=== PATIENT | male | born 1950 | race Caucasian/White ===

== ENCOUNTER → 2019-01-15 15:46 | Outpatient (CLI) | payer MEDICARE, MEDICAID, SELFPAY ==
--- NOTE | 2019-01-15 | DI.MRI.S_ITS ---
PROCEDURE: MR THORACIC SPINE WO/W CON INDICATIONS: PAIN IN THORACIC AND LUMBAR SPINE TECHNIQUE: Noncontrast sagittal T1 spin echo and T2 fast spin echo, sagittal STIR, axial T1 and T2 fast spin echo through the thoracic spine. After the administration of contrast, axial and sagittal T1 spin echo with fat saturation through the thoracic spine. COMPARISON: [facility], MR, MR LUMBAR SPINE WO CON, 01/15/2019, 15:58. FINDINGS: Image quality: Excellent. Alignment and curvature: There is normal bony alignment. Marrow: There is a mass seen centered within the posterior elements at the T7 level, with prominent involvement of the spinous process and the right-sided posterior elements. The right pedicle is also involved. There is severe central canal narrowing seen, with flattening of the ventral spinal cord, as on series 7 image 25. The posterior aspect of the T7 vertebral body is also involved. There is surrounding enhancement of the adjacent soft tissues, including within the epidural region centered at T7 on the left. There is moderate to severe right-sided neural foraminal narrowing seen at T6-T7 and T7-T8. There is also mild involvement of the T3 spinous process. Similar milder involvement can be seen involving the spinous process on the left posterior elements at T10. There is also abnormally decreased T1 weighted signal and abnormally increased T2-weighted/STIR signal and abnormal enhancement seen within the posterior T5 vertebral body and the anterior T11 vertebral body. Each of these areas demonstrates abnormal enhancement. Benign scattered foci are also seen, which are hyperintense on T1-weighted and T2-weighted imaging, which are most consistent with benign vertebral body hemangiomas. Spinal cord: Visualized spinal cord is of normal signal, without abnormal enhancement. Paraspinous soft tissues: No paravertebral masses or abnormal enhancement. Miscellaneous: There is severe central canal narrowing centered at the T7 level. IMPRESSION: There is a soft tissue mass seen involving the posterior elements of the T7 vertebral body, with associated moderate to severe central canal narrowing and spinal cord narrowing. Milder involvement can be seen elsewhere within the thoracic spine. This represents metastatic disease until proven otherwise. An urgent spine surgery consultation is recommended. Note: Findings and recommendations discussed by telephone with Twyla Villalta at 1709 hrs. [place] time on January 15, 2019. Dictated by: Zachery Díaz M.D. on 01/15/2019 at 16:01 Approved by: Zachery Díaz M.D. on 01/15/2019 at 16:12
--- NOTE | 2019-01-15 | DI.MRI.S_ITS ---
PROCEDURE: MR LUMBAR SPINE WO CON INDICATIONS: PAIN IN THORACIC AND LUMBAR SPINE TECHNIQUE: Noncontrast sagittal T1 spin echo and T2 fast echo, sagittal STIR, axial T1 and T2 fast spin echo through the lumbar spine. In cases with scoliosis, additional coronal T2 fast spin echo may be performed. COMPARISON: None. FINDINGS: Image quality: Excellent. Alignment and Curvature: There is mild straightening of normal lumbar curvature. There is trace retrolisthesis of L3 on L4, L4 on L5. Bone Marrow: Marrow is of normal overall signal. Increased T1 and T2 signal foci are present at T12 and L1 suggestive of hemangiomas. No acute vertebral body compression fractures. Spinal Cord: Conus medullaris terminates at the L1-L2 level. Visualized cord demonstrates normal signal and size. Paraspinous Soft Tissues: No paravertebral masses. Discs: Severe desiccation is present L3-4 through L5-S1, moderate throughout the remainder of the lumbar spine. L1-L2: Mild disc bulge with minimal appearance of canal narrowing. Minimal right foraminal narrowing with facet and ligamentum flavum hypertrophy. L2-L3: Mild disc bulge with moderate to severe spinal stenosis. Moderate bilateral foraminal narrowing with facet and ligamentum flavum hypertrophy. L3-L4: Mild disc bulge with severe spinal stenosis and canal compression. Severe bilateral foraminal narrowing with nerve root compression most notable on the right and to a lesser degree the left. Facet and ligamentum flavum hypertrophy are present. L4-L5: Mild disc bulge with severe spinal stenosis. Severe bilateral foraminal narrowing, left greater than right slight effacement of the right nerve root. Facet and ligamentum flavum hypertrophy are present. L5-S1: Mild disc bulge without spinal stenosis. Moderate to severe bilateral foraminal narrowing with facet and ligamentum flavum hypertrophy. IMPRESSION: 1. Multilevel disc bulges. 2. Multilevel spinal stenosis severe at L3-4 and L4-5 secondary to disc bulge with contributing affective facet/ligament of the arthropathy and retrolisthesis. 3. Multiple foraminal narrowings right L3-4 and L4-5 secondary to facet arthropathy. Dictated by: Shantel Card M.D. on 01/15/2019 at 16:29 Approved by: Shantel Card M.D. on 01/15/2019 at 16:40
== END ==
PROVIDERS: Visit Provider Physician Assistant Medical
DX: C41.2 Malignant neoplasm of vertebral column (principal); M51.26 Other intervertebral disc displacement, lumbar region; M51.27 Other intervertebral disc displacement, lumbosacral region; M47.816 Spondylosis without myelopathy or radiculopathy, lumbar region; M48.061 Spinal stenosis, lumbar region without neurogenic claudication; M48.07 Spinal stenosis, lumbosacral region
CPT/HCPCS: 72148; 72157; A9579

== ENCOUNTER → 2019-01-17 12:41 | Outpatient (CLI) | payer MEDICARE, MEDICAID, SELFPAY ==
--- NOTE | 2019-01-17 13:48 | DI.CT.S_ITS ---
PROCEDURE: CT CHEST ABD PEL W CON INDICATIONS: Malignant neoplasm of vertebral column TECHNIQUE: After the administration of oral and intravenous contrast, 5 mm thick sections acquired from the lung apices to the symphysis. 5 mm coronal and sagittal reformats were performed, with additional 7 mm coronal MIP reformats through the lungs. For radiation dose reduction, the following was used: automated exposure control, adjustment of mA and/or kV according to patient size. COMPARISON: [facility], MR, MR THORACIC SPINE WO/W CON, 01/15/2019, 16:18. FINDINGS: Image quality: Excellent. CHEST: Lungs and pleura: No acute airspace opacities. No pleural effusions or pneumothorax. Central and peripheral airways appear patent and normal in caliber. Mediastinum: Heart size is normal. Coronary artery calcifications. No pericardial effusion. No mediastinal or hilar adenopathy by size criteria. Thoracic aorta and central pulmonary arteries are normal in size. Esophagus is normal in caliber. No hiatal hernia. Chest wall: No axillary or supraclavicular adenopathy by size criteria. Thyroid gland is unremarkable. ABDOMEN: Solid organs: Liver is normal in size and enhancement. Gallbladder is unremarkable. Biliary system is non dilated. Pancreas enhances normally. Spleen is normal in size and enhancement. No adrenal nodules. Kidneys demonstrate normal size and enhancement, without hydronephrosis. Peritoneum and bowel: Bowel loops demonstrate normal wall thickness and caliber. No free fluid or air. Sigmoid diverticulosis without evidence of diverticulitis. Nodes and vessels: No retroperitoneal or mesenteric adenopathy by size criteria. Aorta and inferior vena cava are normal in size. Retrocaval left renal vein. Miscellaneous: No ventral hernias. PELVIS: Genitourinary: Bladder wall thickness is normal. Remote prostatectomy. Miscellaneous: No inguinal hernias or adenopathy. Bones: There is a lytic destructive mass involving the posterior elements of T7 and extending minimally into the right posterior aspect of the vertebral body. There is a large soft tissue component invading the canal markedly impinging on the canal and the cord at this level. There is also mild extension posteriorly into the right posterior paraspinous muscles. Additionally, there is a small posterior right T5 lytic lesion and there is a small lytic destructive lesion involving the left lamina of T10. There appeared to be 11 thoracic type vertebral bodies and 5 lumbar type vertebral bodies. IMPRESSION: 1. A lytic destructive mass involves the posterior elements of T7, with a large soft tissue component invading the spinal canal, markedly impinging on the canal and the cord at this level. The mass also extends minimally to involve the right posterior aspect of the vertebral body. 2. Small posterior right T5 lytic lesion and left T10 lamina lytic lesion. 3. There appear to be 11 rib-bearing thoracic-type vertebral bodies and 5 lumbar type vertebral bodies. 4. No other findings in the chest, abdomen, and pelvis indicating evidence of metastatic disease. 5. Remote prostatectomy Comment: Consider plasmacytoma with significant canal invasion versus a solitary lytic metastatic lesion from prostate carcinoma. Comment: Findings were discussed with OLIVIA Mccann, at the time of study dictation on 01/17/19 1406 hrs. The patient has a normal PSA. Boby indicates that the patient will be visiting a spine surgeon today. Dictated by: Damaso Floyd M.D. on 01/17/2019 at 13:52 Approved by: Damaso Floyd M.D. on 01/17/2019 at 14:26
== END ==
PROVIDERS: Visit Provider Physician Assistant Medical
DX: C41.2 Malignant neoplasm of vertebral column (principal); Z85.46 Personal history of malignant neoplasm of prostate
CPT/HCPCS: 71260; 74177; Q9967